=== PATIENT | male | born 1975 ===

== ENCOUNTER 2019-01-01 20:46 | Emergency (ER) | payer SELFPAY ==
[2019-01-01 20:50] VITALS: BMI 21.4
--- NOTE | 2019-01-01 22:31 | ED PDOC ---
Arrival/HPI - General Chief Complaint: Alcohol Ingestion Time Seen by Provider: 01/01/19 20:47 Historian: EMS - History of Present Illness Narrative History of Present Illness (Text): 01/01/19 22:29 A 43 year old male, whose past medical history includes EtOH abuse, brought in by EMS to the emergency department for intoxication. Limited HPI and ROS due to patient's intoxication. Past Medical History - Provider Review Nursing Documentation Reviewed: Yes - Cardiac Hx Cardiac Disorders: No Hx Hypertension: No - Pulmonary Hx Tuberculosis: No - Neurological HX Cerebrovascular Accident: No Hx Seizures: No - Hematological/Oncological Hx Cancer: No - Genitourinary/Gynecological Hx Sexually Transmitted Diseases: No - Psychiatric Hx Substance Use: No - Anesthesia Hx Anesthesia: No Family/Social History - Physician Review Nursing Documentation Reviewed: Yes Family/Social History: No Known Family HX Smoking Status: Unknown If Ever Smoked Hx Alcohol Use: Yes Hx Substance Use: No Allergies/Home Meds Allergies/Adverse Reactions: Allergies No Known Allergies Allergy (Verified 01/01/19 20:51) Home Medications: Home Meds Medication Instructions Recorded Confirmed Unobtainable 01/01/19 01/01/19 Review of Systems - Review of Systems Systems not reviewed;Unavailable: Intoxicated Physical Exam Vital Signs Reviewed: Yes Vital Signs Pulse Resp Pulse Ox 01/01/19 21:59 82 20 98 Temperature: Afebrile Blood Pressure: Normal Pulse: Regular Respiratory Rate: Normal Appearance: Positive for: Well-Appearing, Non-Toxic, Comfortable Pain Distress: None Mental Status: Positive for: other (intoxicated). No: Alert and Oriented X 3 Finger Stick Blood Glucose: 87 - Systems Exam Head: Present: Atraumatic, Normocephalic Pupils: Present: PERRL Extroacular Muscles: Present: EOMI Conjunctiva: Present: Normal Mouth: Present: Moist Mucous Membranes Neck: Present: Normal Range of Motion Respiratory/Chest: Present: Clear to Auscultation, Good Air Exchange. No: Respiratory Distress, Accessory Muscle Use Cardiovascular: Present: Regular Rate and Rhythm, Normal S1, S2. No: Murmurs Abdomen: No: Tenderness, Distention, Peritoneal Signs Back: Present: Normal Inspection Upper Extremity: Present: Normal Inspection. No: Cyanosis, Edema Lower Extremity: Present: Normal Inspection. No: Edema Neurological: Present: GCS=15, CN II-XII Intact, Speech Normal Skin: Present: Warm, Dry, Normal Color. No: Rashes Psychiatric: Present: Intoxicated Medical Decision Making ED Course and Treatment: 01/01/19 22:30 Impression: 43 year old male brought in for intoxication. Plan: -- Reassess and disposition Progress Notes: - Scribe Statement The provider has reviewed the documentation as recorded by the Gianni Connor Provider Scribe Attestation: All medical record entries made by the Scribe were at my direction and personally dictated by me. I have reviewed the chart and agree that the record accurately reflects my personal performance of the history, physical exam, medical decision making, and the department course for this patient. I have also personally directed, reviewed, and agree with the discharge instructions and disposition. Disposition/Present on Arrival - Present on Arrival Any Indicators Present on Arrival: No History of DVT/PE: No History of Uncontrolled Diabetes: No Urinary Catheter: No History of Decub. Ulcer: No History Surgical Site Infection Following: None - Disposition Have Diagnosis and Disposition been Completed?: Yes Diagnosis: Alcohol abuse Disposition: HOME/ ROUTINE Disposition Time: 20:00 Condition: IMPROVED Discharge Instructions (ExitCare): Alcohol Use - When Is Drinking a Problem? Additional Instructions: MERCEDES MEJÍA, thank you for letting us take care of you today. The emergency medical care you received today was directed at your acute symptoms. If you were prescribed any medication, please fill it and take as directed. It may take several days for your symptoms to resolve. Return to the Emergency Department if your symptoms worsen, do not improve, or if you have any other problems. Please contact your doctor or call one of the physicians/clinics you have been referred to that are listed on the Patient Visit Information form that is included in your discharge packet. Bring any paperwork you were given at discharge with you along with any medications you are taking to your follow up visit. Our treatment cannot replace ongoing medical care by a primary care provider outside of the emergency department. Thank you for allowing the [facility] team to be part of your care today. Do not drink too much alcohol at one time. Follow up with your primary care doctor or our clinic next week for re- evaluation and further management. Referrals: [facility] [Outside] - Follow up with primary Maria Guadalupe Vásquez MD [Medical Doctor] - Follow up with primary Forms: [employer] ([place])
[2019-01-02 04:15] VITALS: RESP 18; O2SAT 100
[2019-01-02 05:01] VITALS: BP 105/62; PULSE 75
== END 2019-01-02 04:45 | disposition home or self-care (01) ==
LOC: ED 20:46
DX: F10.10 Alcohol abuse, uncomplicated (principal)

== ENCOUNTER 2019-01-05 22:16 | Emergency (ER) | payer SELFPAY ==
[2019-01-05 22:16] VITALS: BMI 21.4
[2019-01-05 22:33] VITALS: PULSE 84; RESP 18; TEMP 97.7; O2SAT 98
--- NOTE | 2019-01-05 22:48 | ED PDOC ---
Arrival/HPI - General Chief Complaint: Alcohol Ingestion Time Seen by Provider: 01/05/19 22:36 Historian: Patient - History of Present Illness Narrative History of Present Illness (Text): 01/05/19 22:48 Mike Schmidt is a 43 year old male, whose past medical history includes alcohol abuse, who presents to the ED brought in for alcohol intoxication. Patient admits to drinking alcohol tonight and states he feels fine. Patient denies any fever, chills, chest pain, shortness of breath, nausea, vomiting, diarrhea, urinary symptoms, back pain, neck pain, headache, dizziness, or any other complaints. Symptom Onset: Gradual Symptom Course: Unchanged Activities at Onset: Light Context: Home Past Medical History - Provider Review Nursing Documentation Reviewed: Yes - Cardiac Hx Cardiac Disorders: No Hx Hypertension: No - Pulmonary Hx Tuberculosis: No - Neurological HX Cerebrovascular Accident: No Hx Seizures: No - Hematological/Oncological Hx Cancer: No - Genitourinary/Gynecological Hx Sexually Transmitted Diseases: No - Psychiatric Hx Substance Use: No - Anesthesia Hx Anesthesia: No Family/Social History - Physician Review Nursing Documentation Reviewed: Yes Family/Social History: Unknown Family HX Smoking Status: Unknown If Ever Smoked Hx Alcohol Use: Yes Hx Substance Use: No Allergies/Home Meds Allergies/Adverse Reactions: Allergies No Known Allergies Allergy (Verified 01/05/19 22:31) Home Medications: Home Meds Medication Instructions Recorded Confirmed Unobtainable 01/01/19 01/05/19 Review of Systems - Physician Review All systems were reviewed & negative as marked: Yes - Review of Systems Constitutional: Normal. absent: Fevers Eyes: Normal ENT: Normal Respiratory: Normal. absent: SOB, Cough Cardiovascular: Normal. absent: Chest Pain Gastrointestinal: Normal. absent: Abdominal Pain, Diarrhea, Nausea, Vomiting Genitourinary Male: Normal. absent: Dysuria, Frequency, Hematuria, Urinary Output Changes Musculoskeletal: Normal. absent: Back Pain, Neck Pain Skin: Normal. absent: Rash Neurological: Normal. absent: Headache, Dizziness Endocrine: Normal Hemo/Lymphatic: Normal Psychiatric: Normal Physical Exam Vital Signs Reviewed: Yes Vital Signs Temp Pulse Resp Pulse Ox 01/05/19 22:31 97.7 F 84 18 98 Temperature: Afebrile Blood Pressure: Normal Pulse: Regular Respiratory Rate: Normal Appearance: Positive for: Well-Appearing, Non-Toxic, Comfortable Pain Distress: None Mental Status: Positive for: Alert and Oriented X 3 - Systems Exam Head: Present: Atraumatic, Normocephalic Pupils: Present: PERRL Extroacular Muscles: Present: EOMI Conjunctiva: Present: Normal Mouth: Present: Moist Mucous Membranes Neck: Present: Normal Range of Motion Respiratory/Chest: Present: Clear to Auscultation, Good Air Exchange. No: Respiratory Distress, Accessory Muscle Use Cardiovascular: Present: Regular Rate and Rhythm, Normal S1, S2. No: Murmurs Abdomen: No: Tenderness, Distention, Peritoneal Signs Back: Present: Normal Inspection Upper Extremity: Present: Normal Inspection. No: Cyanosis, Edema Lower Extremity: Present: Normal Inspection. No: Edema Neurological: Present: GCS=15, CN II-XII Intact, Speech Normal Skin: Present: Warm, Dry, Normal Color. No: Rashes Psychiatric: Present: Alert, Oriented x 3, Normal Insight, Normal Concentration Medical Decision Making ED Course and Treatment: 01/05/19 22:48 Impression: 43 year old male brought in for alcohol intoxication. Plan: -- Reassess and disposition Prior Visits: Notes and results from previous visits were reviewed. Progress Notes: 01/06/19 01:15 On re-evaluation, pt is awake, alert, ambulating with steady gait. In no acute distress, clinically sober. Pt stable for d/c. - Scribe Statement The provider has reviewed the documentation as recorded by the Gianni Bryson Provider Scribe Attestation: All medical record entries made by the Scribe were at my direction and personally dictated by me. I have reviewed the chart and agree that the record accurately reflects my personal performance of the history, physical exam, medical decision making, and the department course for this patient. I have also personally directed, reviewed, and agree with the discharge instructions and disposition. Disposition/Present on Arrival - Present on Arrival Any Indicators Present on Arrival: No History of DVT/PE: No History of Uncontrolled Diabetes: No Urinary Catheter: No History of Decub. Ulcer: No History Surgical Site Infection Following: None - Disposition Have Diagnosis and Disposition been Completed?: Yes Diagnosis: Alcohol abuse Disposition: HOME/ ROUTINE Disposition Time: 01:15 Condition: FAIR Discharge Instructions (ExitCare): Alcohol Abuse and Alcoholism (DC) Referrals: PCP,NO [Primary Care Provider] - Follow up with primary Forms: [employer] ([place])
== END 2019-01-06 01:17 | disposition home or self-care (01) ==
LOC: ED 22:16
DX: F10.10 Alcohol abuse, uncomplicated (principal)

== ENCOUNTER 2019-01-07 20:34 | Emergency (ER) | payer SELFPAY ==
[2019-01-07 20:48] VITALS: RESP 18
--- NOTE | 2019-01-07 20:50 | ED PDOC ---
Arrival/HPI - General Historian: Patient, EMS - History of Present Illness Narrative History of Present Illness (Text): 01/07/19 20:49 43 y/o male, psychiatric history of chronic alcohol abuse and intoxication, last tetanus doesn't remember, +etoh on breath, biba for etoh intoxication x 1 hour with head injury. Pt. was found on street, intoxicated, abrasion to the scalp, agitated in the ER and refused to reason, no neck/back/chest/abdomen/pelvic pain, no numbness or tingling, no tremors or tongue fasciculation, no other medical or psychological complaints. <Juanjo Lopez - Last Filed: 01/08/19 02:56> <Kapil Marcial - Last Filed: 01/08/19 06:17> - General Time Seen by Provider: 01/07/19 20:49 Past Medical History - Provider Review Nursing Documentation Reviewed: Yes - Cardiac Hx Cardiac Disorders: No Hx Hypertension: No - Pulmonary Hx Tuberculosis: No - Neurological HX Cerebrovascular Accident: No Hx Seizures: No - Hematological/Oncological Hx Cancer: No - Genitourinary/Gynecological Hx Sexually Transmitted Diseases: No - Psychiatric Hx Substance Use: No - Anesthesia Hx Anesthesia: No <Juanjo Lopez - Last Filed: 01/08/19 02:56> Family/Social History - Physician Review Nursing Documentation Reviewed: Yes Family/Social History: Unknown Family HX Smoking Status: Unknown If Ever Smoked Hx Alcohol Use: Yes Hx Substance Use: No <Juanjo Lopez - Last Filed: 01/08/19 02:56> Allergies/Home Meds <Juanjo Lopez - Last Filed: 01/08/19 02:56> <Kapil Mracial - Last Filed: 01/08/19 06:17> Allergies/Adverse Reactions: Allergies No Known Allergies Allergy (Verified 01/07/19 21:09) Home Medications: Home Meds Medication Instructions Recorded Confirmed Unobtainable 01/01/19 01/07/19 Review of Systems - Review of Systems Constitutional: absent: Fatigue, Fevers Eyes: absent: Vision Changes ENT: absent: Hearing Changes Respiratory: absent: SOB, Cough Cardiovascular: absent: Chest Pain Gastrointestinal: absent: Abdominal Pain, Diarrhea, Nausea, Vomiting Genitourinary Male: absent: Dysuria, Frequency Musculoskeletal: absent: Arthralgias, Back Pain Skin: Other (+abrasion). absent: Rash, Pruritis Neurological: absent: Headache, Dizziness, Focal Weakness, Gait Changes, Speech Changes, Facial Droop, Disequilibrium, Seizure Psychiatric: absent: Anxiety, Depression, Suicidal Ideation <JessicaJuanjo Q - Last Filed: 01/08/19 02:56> Physical Exam Vital Signs Reviewed: Yes Vital Signs Temp Pulse Resp BP Pulse Ox 01/07/19 20:36 97.5 F L 101 H 18 138/73 97 Temperature: Afebrile Blood Pressure: Normal Pulse: Tachycardic Respiratory Rate: Normal Appearance: Positive for: Well-Appearing, Non-Toxic, Comfortable Pain Distress: None Mental Status: Positive for: Alert and Oriented X 3, other (+etoh on breath) - Systems Exam Head: Present: Abrasion (lt. parietal approx. 2cm diameter with no laceration), Other (no facial bony tenderness or swelling. ). No: Laceration Pupils: Present: PERRL Extroacular Muscles: Present: EOMI Conjunctiva: Present: Normal Ears: Present: NORMAL TM, Normal Canal. No: Erythema Mouth: Present: Moist Mucous Membranes Pharnyx: No: ERYTHEMA, EXUDATE, TONSILS ENLARGED, Peritonsilar Swelling, Muffled/Hoarse Voice, Strider, Soft Palate/Uvular Edema Nose (External): Present: Atraumatic. No: Abrasion, Contusion, Laceration, Lesions, Other Nose (Internal): Present: Normal Inspection, No Active Bleeding. No: Edematous, Rhinorrhea, Septal Deviation, Septal Hematoma, Epistaxis Neck: Present: Normal Range of Motion, Trachea Midline. No: Meningeal Signs, MIDLINE TENDERNESS, Paraspinal Tenderness, Lymphadenopathy Respiratory/Chest: Present: Clear to Auscultation, Good Air Exchange. No: R espiratory Distress, Accessory Muscle Use, Wheezes, Decreased Breath Sounds, Rales, Retracting, Rhonchi, Tachypneic, Tender to Palpation Cardiovascular: Present: Regular Rate and Rhythm, Normal S1, S2. No: Murmurs Abdomen: No: Tenderness, Distention, Peritoneal Signs, Rebound, Guarding Back: Present: Normal Inspection. No: CVA Tenderness, Midline Tenderness, Paraspinal Tenderness, Pain with Leg Raise, Decubitus Ulcer Upper Extremity: Present: Normal Inspection, Normal ROM, NORMAL PULSES, Neuro vascularly Intact. No: Cyanosis, Edema, Tenderness, Swelling, Deformity Lower Extremity: Present: Normal Inspection, NORMAL PULSES, Normal ROM, Neurovascularly Intact, Capillary Refill < 2 s. No: Edema, CALF TENDERNESS, Octavio's Sign, Tenderness, Swelling, Deformity Neurological: Present: GCS=15, CN II-XII Intact, Speech Normal, Motor Func Grossly Intact, Normal Cerebellar Funct, Gait Normal, Memory Normal Skin: Present: Warm, Dry, Normal Color. No: Rashes Psychiatric: Present: Alert, Oriented x 3, Normal Insight, Normal Concentration <Juanjo Lopez - Last Filed: 01/08/19 02:56> Vital Signs Temp Pulse Resp BP Pulse Ox 01/08/19 06:13 98.2 F 89 18 133/68 98 01/07/19 20:36 97.5 F L 101 H 18 138/73 97 <Kapil Marcial - Last Filed: 01/08/19 06:17> Medical Decision Making ED Course and Treatment: 01/07/19 21:09 -FS -CT head -Wound irrigated with normal saline, clean with betadine, bacitracin and gauze dressing -Tdap -Observe and reassess 01/08/19 02:56 -FS 104 -CT head No acute intracranial abnormality. -Pt. is sleeping, resting comfortable, no focal neurological deficits. -Case discussed and endorsed to the ER attending Dr. Marcial for the follow up and dispo - RAD Interpretation Radiology Orders: EXAM: CT Head Without IV contrast. CLINICAL HISTORY: ETOH SCALP ABRASION TECHNIQUE: Axial computed tomography images of the head/brain without intravenous contrast. COMPARISON: None provided. FINDINGS: BRAIN: No acute intraparenchymal hemorrhage. No mass lesion. No CT evidence for acute territorial infarct. No midline shift or extra-axial collections. VENTRICLES: No hydrocephalus. ORBITS: The orbits are unremarkable. SINUSES AND MASTOIDS: The paranasal sinuses and mastoid air cells are clear. BONES: No fracture. SOFT TISSUES: Unremarkable. IMPRESSION: No acute intracranial abnormality. Electronically signed on January 07, 2019 9:47:06 PM EDT by: Jimmie Gupta M.D., M.B.A., Certified By [employer] Trained MRI and CT Specialist [employer] Equipment Tender: Radiologist <Juanjo Lopez - Last Filed: 01/08/19 02:56> ED Course and Treatment: 01/08/19 06:16 patient is awake and alert, clear speech and steady gait, no s/s of acute withdrawal, stable for dc - RAD Interpretation Radiology Orders: 01/07/19 21:09 HEAD W/O CONTRAST [CT] Stat - Medication Orders Current Medication Orders: Discontinued Medications Tetanus/Reduced Diphtheria/Acell Pertussis (Boostrix Vaccine Inj) 0.5 ml IM .ONCE ONE Stop: 01/07/19 21:10 Last Admin: 01/07/19 21:23 Dose: Not Given Non-Admin Reason: Patient Refused Immunization Registry Document 01/07/19 21:23 IT (Rec: 01/07/19 21:23 IT [id number]) [facility]-Date provided 01/05/19 <Kapil Marcial - Last Filed: 01/08/19 06:17> Disposition/Present on Arrival - Present on Arrival Any Indicators Present on Arrival: No History of DVT/PE: No History of Uncontrolled Diabetes: No Urinary Catheter: No History of Decub. Ulcer: No History Surgical Site Infection Following: None - Disposition Have Diagnosis and Disposition been Completed?: Yes Disposition Time: 20:50 <Juanjo Lopez - Last Filed: 01/08/19 02:56> - Disposition Patient Plan: Discharge <Kapil Marcail - Last Filed: 01/08/19 06:17> - Disposition Diagnosis: Alcohol intoxication, Scalp abrasion Disposition: HOME/ ROUTINE Patient Problems: Current Active Problems Problem Status Onset Alcohol intoxication Acute Scalp abrasion Acute Condition: STABLE
[2019-01-07 21:09] VITALS: BMI 29.0
[2019-01-07] MEDS ORDERED: TDAP Vaccine 0.5 mL Syr IM ONE (21:09)
[2019-01-08 06:15] VITALS: BP 133/68; PULSE 89; TEMP 98.2; O2SAT 98
--- NOTE | 2019-01-08 09:09 | CT ---
Date of service: 01/07/2019 PROCEDURE: CT HEAD WITHOUT CONTRAST. HISTORY: etoh intox, scalp abrasion COMPARISON: None available. TECHNIQUE: Axial computed tomography images were obtained through the head/brain without intravenous contrast. Radiation dose: Total exam DLP = 1698.13 mGy-cm. This CT exam was performed using one or more of the following dose reduction techniques: Automated exposure control, adjustment of the mA and/or kV according to patient size, and/or use of iterative reconstruction technique. FINDINGS: HEMORRHAGE: No intracranial hemorrhage. BRAIN: No mass effect or edema. No atrophy or chronic microvascular ischemic changes. VENTRICLES: Unremarkable. No hydrocephalus. CALVARIUM: Unremarkable. PARANASAL SINUSES: Unremarkable as visualized. No significant inflammatory changes. MASTOID AIR CELLS: Unremarkable as visualized. No inflammatory changes. OTHER FINDINGS: The report concurs with the preliminary [facility] report IMPRESSION: No acute findings
== END 2019-01-08 06:14 | disposition home or self-care (01) ==
LOC: ED 20:34
DX: F10.129 Alcohol abuse with intoxication, unspecified (principal); S00.01XA Abrasion of scalp, initial encounter; X58.XXXA Exposure to other specified factors, initial encounter